=== PATIENT | female | born 1975 | race Hispanic/Latino ===

== ENCOUNTER 2021-12-23 15:59 | Emergency (ER) | payer SELFPAY ==
[~2021-12-23] VITALS: Ht 154.9 cm; Wt 81.6 kg
== END 2021-12-23 17:00 | disposition home or self-care (01) ==
LOC: ER 16:16
DX: R05.9 Cough, unspecified (principal); J18.9 Pneumonia, unspecified organism; I10 Essential (primary) hypertension; F31.9 Bipolar disorder, unspecified
CPT/HCPCS: 99282